=== PATIENT | female | born 1935 | race Caucasian/White ===

== ENCOUNTER → 2017-08-20 | Outpatient (CLI) | payer OTHER ==
[~2017-08-20] VITALS: Ht 165.1 cm; Wt 70.3 kg
[~2017-08-20] MED LIST: ADULT LOW DOSE81 MG; AMBIEN 5 MG TABL5 M1 PO; AMLODIPINE BESY10 MG; ANTIVERT25 MG PO; APAP500 PO; ASPIR 8181 M1 PO; ASPIRIN325 PO; CALCIUM 500 +1 EAC5 PO; CELEBREX 200 M200 MG PO; CENTRUM SILVER1 EAC1; CENTRUM SILVER1 EAC4 PO; FENOFIBRATE160 MG PO; HCTZ PO; HYDROCHLOROTHIA25 M1 PO; LIPITOR 20 MG T20 M1 PO; LISINOPRIL20 MG PO; LOPRESSOR100 M1 PO; LOPRESSOR100 MG; LOPRESSOR100 MG PO; MYLAN PO; NORVASC 5 MG TAB5 MG PO; OMEPRAZOLE 20 M20 M1 PO; OMEPRAZOLE10 MG; RESTORIL15 MG; SIMVASTATIN40 MG; SIMVASTATIN40 MG PO; TRAMADOL 50 MG50 MG PO; TYLENOL325 MG PO; VICODIN 5-5001 EACH PO; [UNRECOGNIZED DRUG - MIXTURE]; acid reducer
--- NOTE | ~2017-08-20 | S ---
[facility] [place] [address] [place] [address] SURGICAL PATH RPT PROCEDURE Name: YOLETTE BISHOP Room #: REG [facility].#: [id number] Admission: 08/20/17 Date of : 39 Discharge: Report #: [id number] Path Case #: [id number] PATHOLOGY REPORT COLLECTION DATE: 08/20/2017 RECEIVED DATE: 08/21/2017 SUBMITTING PHYS: Dr. Chris Gaytan OTHER PHYS: Dr. Vielka Kaiser SPECIMEN(S) RECEIVED: A.Polyp ascending colon B.Polyp 70 cm * * * * * * * * * * * * FINAL DIAGNOSIS: A. Colon, ascending, biopsy: - Colonic mucosa with hyperplastic change. B. Colon,70 cm, biopsy: - Colonic mucosa with hyperplastic change. PATHOLOGIST: Lyle Rosario M.D. REPORT ELECTRONICALLY SIGNED BY: Lyle Rosario M.D. DATE/TIME: 08/24/2017 10:09 * * * * * * * * * * * * GROSS PATHOLOGY: A. The specimen is received in formalin, labeled "Clayton, Yolette, ascending colon polyp" and consists of a 0.3 cm freeman mucosal biopsy. Totally submitted as A1. B. The specimen is received in formalin, labeled "Clayton, Yolette, polyp 70 cm" and consists of a 0.5 cm freeman polypoid mucosal biopsy. Totally submitted B1. (JAY; 08/21/2017) CLINICAL HISTORY: History of polyps INITIAL CPT CODE(S): A; 66765 B; 04555 Professional services performed by [facility] at [facility] [address] , [place] [address] Technical services performed by [facility] at [address] [place] [address] [place] [address] SURGICAL PATH RPT PROCEDURE Name: YOLETTE BISHOP Room #: REG [facility].#: [id number] Admission: 08/20/17 Date of : 39 Discharge: Report #: [id number] Path Case #: [id number] [place] [address]. [facility] [address] [address] PHONE: [phone] DIRECTOR: Norman Silva M.D. * * * END OF REPORT * * *
--- NOTE | ~2017-08-20 | P ---
[facility] [place] [address] [place] [address] PROCEDURE REPORT Name: MINDY BISHOP Room #: REG [facility]#: [id number] Admission: 08/20/17 Attend Phys: Chris Gaytan MD Discharge: Date of : 39 Report #: [id number] THIS REPORT FOR: //name// CC: Briana Gaytan DATE OF SERVICE: 08/20/2017 BRIEF HISTORY: The patient is an 82-year-old woman for high risk screening colonoscopy. She has had previous colonoscopies at other institution and is told she had colon polyps and was told to return in 3 years. PREOPERATIVE DIAGNOSIS: High risk screening due to history of colon polyps. POSTOPERATIVE DIAGNOSES: 1. Colon polyps. 2. Moderate diverticulosis coli. MEDICATIONS: Deep sedation with propofol per anesthesia. SPECIMEN: 1. Diminutive polyp, ascending colon. 2. Sessile polyp from 70 cm. ESTIMATED BLOOD LOSS: 3 mL. PROCEDURE: Colonoscopy to cecum and terminal ileum with biopsy and snare polypectomy. FINDINGS: Prior to propofol sedation, procedure of colonoscopy discussed with the patient as well as potential risks and its complications. She indicates she understands and desires to proceed. DESCRIPTION OF PROCEDURE: With the patient in left lateral decubitus position, digital examination was completed which revealed no abnormalities. Subsequently, the [employer] video colonoscope was introduced into the rectum, advanced under direct vision to the cecum. Done with minimal difficulty. The cecum was identified by the ileocecal valve and the appendiceal orifice. I was able to visualize the distal segment of terminal ileum, which was noted to be unremarkable. At that point, the scope was slowly withdrawn and careful circumferential views were obtained. Upon slow withdrawal of the scope, the prep was good. The mucosa was within normal limits, normal vascular pattern, normal light reflex. As we withdrew the scope, she was found to have a diminutive polyp in the proximal ascending colon which was removed by biopsy. Scope was further withdrawn and a few scattered diverticula were seen in the [facility] [address] [place] [address] PROCEDURE REPORT Name: MINDY BISHOP Room #: REG [facility] ..#: [id number] Admission: 08/20/17 Attend Phys: Chris Gaytan MD Discharge: Date of : 39 Report #: [id number] proximal colon. No additional abnormalities were noted until the descending colon was reached and at 70 cm, a 5 mm sessile polyp was seen and removed by cold snare polypectomy. Scope was further withdrawn and no additional abnormalities were seen. Scope was withdrawn. The patient tolerated the procedure well. Scope was withdrawn in the rectum and multiple attempts of retroflexion failed. Scope was withdrawn. A repeat digital rectal exam was completed very carefully. I could not feel any palpable lesions in the anal canal or the anal verge area. The patient tolerated the procedure well. CONDITION OF THE PATIENT UPON DISCHARGE: Following procedure, the patient drowsy, aroused, conversant and will be discharged home when fully ambulatory. INSTRUCTIONS TO THE PATIENT AND FAMILY AT THE TIME OF DISCHARGE: The patient has a history of polyps. We will follow up on the path from today. If one or both are adenomas, typical recommendation would be 5 years. I would consider colonoscopy in 5 years on her overall health status at that point in time. if her health is good and she has lifespan is 7-10 years, a colonoscopy would be reasonable. However, if health is poor, life expectancy is limited, I would forgo colonoscopy at that time. She will return to her primary care physician and return to see me as needed. Last colonoscopy was about 4 years ago. Withdrawal time from the cecum was 15 minutes. <ELECTRONICALLY SIGNED> By: Chris Gaytan MD 08/24/17 1948 1204 1231 Chris Gaytan MD /nt
== END | disposition home or self-care (01) ==
LOC: EDSTATUS 08:17 → GI 08:20
DX: Z09 Encounter for follow-up examination after completed treatment for conditions other than malignant neoplasm (principal); K63.5 Polyp of colon; K57.30 Diverticulosis of large intestine without perforation or abscess without bleeding; I10 Essential (primary) hypertension; E78.5 Hyperlipidemia, unspecified; M19.90 Unspecified osteoarthritis, unspecified site; M06.9 Rheumatoid arthritis, unspecified; Z90.49 Acquired absence of other specified parts of digestive tract; Z86.73 Personal history of transient ischemic attack (TIA), and cerebral infarction without residual deficits; Z87.891 Personal history of nicotine dependence; Z98.890 Other specified postprocedural states; Z88.6 Allergy status to analgesic agent; Z79.899 Other long term (current) drug therapy; Z79.82 Long term (current) use of aspirin
CPT/HCPCS: 62110; 62900

== ENCOUNTER 2018-09-06 15:14 | Emergency (ER) | payer OTHER ==
[~2018-09-06] VITALS: Ht 170.2 cm; Wt 72.6 kg
--- NOTE | ~2018-09-06 | EKG ---
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: HERMILO : 1935 Requested By: Howie Hamilton Order Number: [id number] MD: Edi Gonzalez Measurements Intervals [place] Rate: 71 P: 28 VA: 158 QRS: -65 QRSD: 84 T: 27 QT: 387 QTc: 421 Interpretive Statements Sinus rhythm Atrial premature complex Inferior infarct, old Anterior infarct, old Compared to ECG 11/10/2016 11:39:58 Atrial premature complex(es) now present Electronically Signed On 09-06-2018 16:43:16 CDT by Edi Gonzalez [email or web address] <ELECTRONICALLY SIGNED> By: Edi Gonzalez MD, [facility] 09/06/18 1643 [id number] 153 Edi Gonzalez MD, FAC /EPI
[~2018-09-06 15:14] MED LIST changes: +OMEPRAZOLE40 MG PO
[2018-09-06 16:12] LABS: HEMATOCRIT 35.9 % (37.0-47.0); HEMOGLOBIN 12.1 gm/dL (12.0-15.0); MCH 31.1 pg (26.0-34.0); MCHC 33.8 g/dL (28.0-37.0); MCV 92.1 fL (80.0-100.0); RBC 3.89 mil/uL (4.20-5.00); RDW 14.5 % (10.5-14.5); WBC 10.8 thou/uL (4.0-11.0)
[2018-09-06 16:20] LABS: ANION GAP 9 mmol/L (7-16); BUN 30 mg/dL (7-18); CALCIUM 9.9 mg/dL (8.5-10.1); CHLORIDE 103 mmol/L (98-107); CO2 26 mmol/L (21-32); CREATININE 1.6 mg/dL (0.6-1.0); GLUCOSE 95 mg/dL (74-106); POTASSIUM 3.4 mmol/L (3.5-5.1); SODIUM 138 mmol/L (136-145)
[2018-09-06 16:28] LABS: ALBUMIN 3.6 g/dL (3.4-5.0); SGOT 21 U/L (15-37); SGPT 17 U/L (30-65); TOTAL BILIRUBIN 0.7 mg/dL (<0.1-1.0); TOTAL PROTEIN 7.3 g/dL (6.4-8.2); TROPONIN-I <0.06 ng/mL (<0.06)
[2018-09-06] MEDS ORDERED: MORPHINE SULFAT15 M3 PO (18:58)
== END 2018-09-06 20:02 | disposition home or self-care (01) ==
LOC: ER 15:14
PROVIDERS: Emergency Medicine
DX: M54.9 Dorsalgia, unspecified (principal); G89.29 Other chronic pain; R07.9 Chest pain, unspecified; Z87.891 Personal history of nicotine dependence; Z88.5 Allergy status to narcotic agent; Z98.890 Other specified postprocedural states; Z90.49 Acquired absence of other specified parts of digestive tract; M06.9 Rheumatoid arthritis, unspecified; I10 Essential (primary) hypertension; E78.5 Hyperlipidemia, unspecified; Z86.73 Personal history of transient ischemic attack (TIA), and cerebral infarction without residual deficits; K21.9 Gastro-esophageal reflux disease without esophagitis

== ENCOUNTER 2019-04-29 18:24 | Inpatient (IN) | payer OTHER ==
[~2019-04-29] VITALS: Ht 165.1 cm; Wt 74.3 kg
[~2019-04-29 18:24] MED LIST changes: +MORPHINE SULFAT15 M3 PO
[2019-04-29 18:25] VITALS: BP 143/50
[2019-04-29 19:06] LABS: ABSOLUTE NEUTROPHILS 10.8 thou/uL (1.4-8.2); BASOPHILS 0.3 % (0.0-2.0); EOSINOPHILS 0.9 % (0.0-3.0); HEMATOCRIT 38.7 % (37.0-47.0); HEMOGLOBIN 12.8 gm/dL (12.0-15.0); LYMPHOCYTES 7.8 % (24.0-44.0); MCH 31.1 pg (26.0-34.0); MCHC 33.1 g/dL (28.0-37.0); MCV 93.9 fL (80.0-100.0); MONOCYTES 7.4 % (1.0-8.0); PLATELET COUNT 280 thou/uL (150-400); POLYS 83.6 % (36.0-66.0); RBC 4.12 mil/uL (4.20-5.00); RDW 14.5 % (10.5-14.5); WBC 12.9 thou/uL (4.0-11.0)
[2019-04-29 19:08] LABS: ANION GAP 11 mmol/L (7-16); BUN 32 mg/dL (7-18); CALCIUM 9.4 mg/dL (8.5-10.1); CHLORIDE 101 mmol/L (98-107); CO2 26 mmol/L (21-32); CREATININE 1.4 mg/dL (0.6-1.0); GLUCOSE 123 mg/dL (74-106); POTASSIUM 3.9 mmol/L (3.5-5.1); SODIUM 138 mmol/L (136-145)
--- NOTE | 2019-04-29 19:12 | EKG ---
[place] [address] [address] 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: WG : 1935 Requested By: Abdulkadir Doss Order Number: [id number] MD: García Michel Measurements Intervals [place] Rate: 75 P: 25 WY: 182 QRS: -61 QRSD: 82 T: 44 QT: 352 QTc: 394 Interpretive Statements Sinus rhythm Anteroseptal infarct age indeterminate Left axis deviation Inferior Q waves in 2 aVF consider inferior infarct age indeterminate Compared to ECG 09/06/2018 15:39:38 Atrial premature complex(es) no longer present Electronically Signed On 04-29-2019 19:12:19 CDT by García Michel [email or web address] ��������������������������������������������� <ELECTRONICALLY SIGNED> ���������������������������������������� By: García Michel MD ��������������������������������������������� 04/29/191911 04 04 García Michel MD /EPI
[2019-04-29 19:17] LABS: TROPONIN-I <0.06 ng/mL (<0.06)
--- NOTE | 2019-04-29 19:19 | NUR ---
PATIENT'S SISTER, WILEY, RETURNED CALL ( REQUESTED BY PATIENT). SISTER STATES SHE IS NOT A CUSTOMER DEVELOPMENT REPRESENTATIVE FOR THE PATIENT AND WISHES TO NOT BE CONTACTED FURTHER WITH ANY UPDATES OR INFORMATION. INSTRUCTED THAT PATIENT SHOULD REACH OUT TO ONE OF HER SONS. THIS RN INFORMED SISTER THAT SHE IS NOT LISTED A CONTACT AND PATIENT VERBALLY REQUESTED SHE BE CONTACTED AND PROVIDED PHONE NUMBER. CHARGE NURSE NOTIFIED OF SISTER'S REQUEST TO NOT BE CONTACTED AGAIN
--- NOTE | 2019-04-29 19:43 | NUR ---
PATIENT'S SON, JACINDA BISHOP CONTACTED AT PATIENT REQUEST. NUMBER GIVEN BY PATIENT IS [phone]. MESSAGE LEFT FOR RETURN CALL
[2019-04-29 19:46] LABS: URINE BILIRUBIN NEGATIVE (Negative); URINE BLOOD NEGATIVE (Negative); URINE CLARITY CLEAR; URINE COLOR YELLOW; URINE GLUCOSE-RANDOM* NEGATIVE (Negative); URINE KETONES NEGATIVE (Negative); URINE LEUKOCYTES-REFLEX NEGATIVE (Negative); URINE NITRITE-REFLEX NEGATIVE (Negative); URINE PROTEIN (DIPSTICK) NEGATIVE (Negative); URINE SPECIFIC GRAVITY 1.015 (1.005-1.035); URINE UROBILINOGEN 0.2 E.U./dl (0.2-1.0)
--- NOTE | 2019-04-29 21:37 | NUR ---
PATIENT'S SON, JACINDA, CALLED AGAIN AT REQUEST OF PATIENT. ANOTHER VOICEMAIL LEFT FOR RETURN CALL.
[2019-04-29 21:53] VITALS: BP 148/40
[2019-04-29 21:55] VITALS: BP 148/40
[2019-04-29 22:46] VITALS: BP 135/69
[2019-04-29 22:49] VITALS: BP 135/69
[2019-04-30] MEDS ORDERED: HYDROCHLOROTH12.5 M1 PO (00:54)
[2019-04-30 04:25] VITALS: BP 143/73
[2019-04-30 04:27] VITALS: BP 112/58
[2019-04-30 04:29] VITALS: BP 131/73
--- NOTE | 2019-04-30 04:57 | NUR ---
PT ARRIVED UNIT AT ABOUT 2230. PT A/OX4, VITAL SIGNS STABLE, ASSESSMENT CHARTED. NO COMPLAINTS OF DIZZINESS, WALKED PT TO BATHROOM AND BACK TO BED. TOLERATED ACTIVITY APPROPRIATELY. PT COMPLAINED OF SOME NECK ATHRITIC PAIN. ORDERS RECIEVED AND IMPLEMENTED. PAIN ADEQAUTELY MANAGED WITH PAIN MEDICATION. ADMISSION COMPLETED. ORTHOSTATIC BP COMPLETED THIS AM. ORTHOSTATIC BP WITHIN NORMAL LIMITS. PT RESTED WELL THROUGH THE NIGHT. PROGRESSING TOWARD PLAN OF CARE. WILL CONTINUE TO MONITOR.
[2019-04-30 05:02] LABS: HEMATOCRIT 37.1 % (37.0-47.0); HEMOGLOBIN 12.3 gm/dL (12.0-15.0); MCH 31.5 pg (26.0-34.0); MCHC 33.2 g/dL (28.0-37.0); MCV 94.7 fL (80.0-100.0); RBC 3.91 mil/uL (4.20-5.00); RDW 14.1 % (10.5-14.5)
[2019-04-30 05:13] LABS: CALCIUM 9.1 mg/dL (8.5-10.1); CREATININE 1.3 mg/dL (0.6-1.0); MAGNESIUM 1.6 mg/dL (1.8-2.4); POTASSIUM 3.6 mmol/L (3.5-5.1)
[2019-04-30 08:20] VITALS: BP 123/63
[2019-04-30 15:03] VITALS: BP 123/63
--- NOTE | 2019-04-30 15:17 | NUR ---
ASSUMED CARE OF PATIENT AT 0700. ASSESSMENTS CHARTED. PATIENT SAT UP IN THE CHAIR FOR THE ENTIRETY OF THE MORNING. SHE AMBULATES WELL WITH HER CANE. PATIENT DENIES ANY FEELING OF LIGHTHEADEDNESS OR DIZZINESS. DISCHARGE PAPERWORK REVIEWED WITH THE PATIENT AND SIGNED. PRINTOUTS ABOUT "HOW TO PREVENT FALLS AT HOME" WERE GONE OVER AND GIVEN TO THE PATIENT. PATIENT'S TELE AND IV REMOVED. PATIENT STATES THAT SHE FEELS BETTER THAN SHE DID WHEN SHE ARRIVED. PATIENT WAS TAKEN VIA WHEELCHAIR TO THE MAIN ENTRANCE AND DRIVEN HOME BY HER SON.
== END 2019-04-30 15:15 | disposition home or self-care (01) | DRG 641 ==
LOC: ER 18:24 → EROBS 21:35 → 2N 22:08
PROVIDERS: Emergency Medicine; Nurse Practitioner Acute Care; ADMIT Hospitalist
DX: E86.0 Dehydration (principal); N17.9 Acute kidney failure, unspecified; N18.3 Chronic kidney disease, stage 3 (moderate); M06.9 Rheumatoid arthritis, unspecified; I12.9 Hypertensive chronic kidney disease with stage 1 through stage 4 chronic kidney disease, or unspecified chronic kidney disease; E78.5 Hyperlipidemia, unspecified; G89.29 Other chronic pain; W18.39XA Other fall on same level, initial encounter; K21.9 Gastro-esophageal reflux disease without esophagitis; Z79.82 Long term (current) use of aspirin; Z79.899 Other long term (current) drug therapy; Z86.73 Personal history of transient ischemic attack (TIA), and cerebral infarction without residual deficits; Z90.49 Acquired absence of other specified parts of digestive tract; Z88.6 Allergy status to analgesic agent; Z87.891 Personal history of nicotine dependence; Y93.89 Activity, other specified; Y92.89 Other specified places as the place of occurrence of the external cause; Y99.8 Other external cause status
CPT/HCPCS: 10081

== ENCOUNTER 2020-05-26 05:54 | Inpatient (IN) | payer OTHER ==
[~2020-05-26] VITALS: Ht 165.1 cm; Wt 70.3 kg
[~2020-05-26 05:54] MED LIST changes: +HYDROCHLOROTH12.5 M1 PO; -LOPRESSOR100 M1 PO; +TOPROL XL100 MG PO
[2020-05-26 05:55] VITALS: BP 189/73
[2020-05-26 07:52] LABS: ABSOLUTE NEUTROPHILS 4.7 thou/uL (1.4-8.2); BASOPHILS 0.8 % (0.0-2.0); EOSINOPHILS 2.3 % (0.0-3.0); HEMATOCRIT 38.2 % (37.0-47.0); HEMOGLOBIN 12.6 gm/dL (12.0-15.0); MCH 32.3 pg (26.0-34.0); MCV 97.8 fL (80.0-100.0); MONOCYTES 6.8 % (1.0-8.0); PLATELET COUNT 269 thou/uL (150-400); POLYS 53.1 % (36.0-66.0); RBC 3.91 mil/uL (4.20-5.00); WBC 8.9 thou/uL (4.0-11.0)
[2020-05-26 08:07] LABS: ANION GAP 11 mmol/L (7-16); BUN 18 mg/dL (7-18); CALCIUM 8.5 mg/dL (8.5-10.1); CHLORIDE 107 mmol/L (98-107); CO2 25 mmol/L (21-32); GLUCOSE 103 mg/dL (74-106); POTASSIUM 3.5 mmol/L (3.5-5.1); SODIUM 143 mmol/L (136-145)
[2020-05-26 08:13] LABS: ALBUMIN 3.2 g/dL (3.4-5.0); SGOT 32 U/L (15-37); SGPT 25 U/L (30-65); TOTAL BILIRUBIN 0.3 mg/dL (0.2-1.0)
[2020-05-26 08:15] LABS: DIRECT BILIRUBIN < 0.1 mg/dL (<0.1-0.2)
[2020-05-26 08:35] LABS: URINE BILIRUBIN NEGATIVE (Negative); URINE BLOOD TRACE (Negative); URINE CLARITY CLEAR; URINE COLOR YELLOW; URINE GLUCOSE-RANDOM* NEGATIVE (Negative); URINE KETONES NEGATIVE (Negative); URINE PROTEIN (DIPSTICK) 1+ (Negative); URINE SPECIFIC GRAVITY 1.015 (1.005-1.035); URINE UROBILINOGEN 0.2 E.U./dl (0.2-1.0)
[2020-05-26 08:36] LABS: URINE LEUKOCYTES-REFLEX 1+ (Negative); URINE NITRITE-REFLEX POSITIVE (Negative)
[2020-05-26 08:52] LABS: BACTERIA-REFLEX >30 Many /HPF (None Seen); CASTS None Seen /LPF (None Seen); CRYSTALS None Seen /LPF (None Seen); SQUAMOUS 4-10 Moderate /LPF (0-3); URINE RBC 0-2 Rare /HPF (0-2); URINE WBC-REFLEX 6-15 Few /HPF (0-5)
[2020-05-26 09:49] VITALS: BP 196/100
--- NOTE | 2020-05-26 09:49 | EKG ---
[facility] [place] [address] ELECTROCARDIOGRAM REPORT Name: MINDY BISHOP Room #: REG [facility]#: [id number] Admission: 05/26/20 Attend Phys: Discharge: Date of : 39 Report #: [id number] THIS REPORT FOR: cc: [facility] - Clinic physician unknown [facility] - Clinic physician unknown Edi Gonzalez MD [facility] ~ THIS REPORT FOR: //name// [facility] ED Test Date: 2020-05-26 Test Time: 06:10:16 Pat Name: MINDY BISHOP Department: Room: Gender: F Vice President Quality Assurance: [place] [id number] : 1935 Requested By: Rhonda Hernandez Order Number: [id number] MD: Edi Gonzalez Measurements Intervals [place] Rate: 67 P: 39 FL: 173 QRS: -56 QRSD: 88 T: 29 QT: 394 QTc: 416 Interpretive Statements Sinus rhythm LAD, consider LAFB or inferior infarct Poor R wave progression Baseline wander in lead(s) V6 Compared to ECG 04/29/2019 19:05:57 No significant change was found Electronically Signed On 05-26-2020 9:49:19 CDT by Edi Gonzalez [email or web address] <ELECTRONICALLY SIGNED> By: Edi Gonzalez MD, [facility] 05/26/20 0949 0610 0610 Edi Gonzalez MD, [facility] /EPI
--- NOTE | 2020-05-26 10:03 | NUR ---
1ST ATTEMPT AT REPORT
[2020-05-26 10:45] VITALS: BP 151/70
[2020-05-26 12:06] VITALS: BP 161/88
--- NOTE | 2020-05-26 12:40 | NUR ---
ORDERS RECEIVED FOR PT EVAL AND TREAT. Pt FROM HOME S/P FALL AND WAS FOUND TO HAVE L ACUTE COMMUNITED PROXIMAL HUMERUS FRACTURE. ORTHO CONSULT PENDING. WILL NEED UPDATED PT ORDERS FROM ORTHO REGARDING ANY RESTRICTIONS WITH L UE PRIOR TO INITIATING PT INTERVENTIONS.
--- NOTE | 2020-05-26 15:41 | NUR ---
ASSUMED CARE AT 0700, SHIFT ASSESMENT DONE, ADMISSION DONE. PT C/O PAIN, PRN PAIN MEDS GIVEN WITH SOME RELIEF. PT VERY ANXIOUS, URINATES OFTEN, INCONTINENT MOST OF THE TIME. REFUSES TO GET UP AND USE THE BEDSIDE COMMODE. HAS A UTI, ON IV ANTIBIOTICS. NO SURGERY NEEDED AT THIS TIME, HAS A IMMOLIZER ON. WILL CONTINUE TO ASSESS AND ASISST WITH ADLs NEEDED.
[2020-05-26 19:30] VITALS: BP 182/96
--- NOTE | 2020-05-27 03:29 | NUR ---
ASSUMED PT CARE AT APPROX 1900.PT C/O PAIN ON HER L SHOULDER IMMEDIATELY AFTER SHIFT CHANGE,MANAGED WITH MED.PT'S BP AT HS WAS ELEVATED,HOTEL OPERATION MANAGER ON DUTY NOTIFIED ORDER NOTED AND CARRIED OUT.PER AM NURSE,DR MARQUEZ GAVE ORDER FOR PT TO HAVE CHSIHOLM CATH PLACED,ORDER CARRIED OUT.PT REQUESTED FOR AND RECIEVED SLEEPING MED TO HELP HER SLEEP,PT SLEPT OFF AND ON.IMMOBILIZER TO HER L SHOULDER.PT APPEARS TO BE SLEEPING ON HER BED AT THIS TIME.FALL PRECAUTIONS IN PLACE,CALL LIGHT WITHIN REACH.
[2020-05-27 03:30] VITALS: BP 156/91
[2020-05-27 08:22] VITALS: BP 160/77
--- NOTE | 2020-05-27 09:05 | NUR ---
Assumed patient care at 0715. Vital signs stable, LSCTA, abdomen is soft and non-tender, BS x's 4; skin is clean, warm, dry and intact. Patient was given Ondansetron 4mg IV push for nausea at 0745; this medication was effective. She was given Hydrocodone 7/325mg po at 0745 as well for "level nine" left shoulder pain; she reports that this medication "only reduces my pain down to a level seven." Patient was given Miralax at 0752 for constipation; will monitor for effectiveness.
[2020-05-27 18:14] VITALS: BP 165/79
[2020-05-27 19:27] VITALS: BP 171/84
--- NOTE | 2020-05-28 00:23 | NUR ---
ASSUMED PT CARE AT 1900. PT IS VERY ANXIOUS, CALLS JUST ABOUT EVERY 20MINS FOR LITTLE THINGS. A&OX4 TONIGHT, KEPT SAYING SHE IS EXHAUSTED BUT COULD NOT SLEEP. DOSE OF AMBIEN GIVEN, FINALLY FELL ASLEEP AROUND 0000. PAIN BEING MANAGED WITH PO PAIN MEDS. NEW IV PLACED IN RIGHT AC, ZOFRAN GIVEN FOR NAUSEA. PT IS WORRIED ABOUT LACK OF BM, BUT STATES SHE IS PASSING GAS. PT HAS SIGNIFICANT ROSACEA. CHISHOLM PATENT WITH GOOD OUTPUT. WILL CONTINUE TO MONITOR.
[2020-05-28 04:03] VITALS: BP 161/69
[2020-05-28 06:15] VITALS: BP 165/72
[2020-05-28 07:52] VITALS: BP 158/69
[2020-05-28] MEDS ORDERED: CEFUROXIME250 MG PO (09:47)
[2020-05-28] MEDS ORDERED: GABAPENTIN 100100 MG PO (09:47)
[2020-05-28] MEDS ORDERED: CELEXA 20 MG TA20 MG PO (09:48)
[2020-05-28] MEDS ORDERED: TRAMADOL 50 MG50 MG PO (09:50)
--- NOTE | 2020-05-28 10:15 | NUR ---
chart review. cm consult for dcp. cm visited with pt at bedside with personal facial mask on. intro to cm, transition of care ie hh and skilled rehab. pt is a & o x 3 with some forgetfulness and confusion. noted pt would keep eyes closed during verbal conversation. " yes i told dr salcedo is where want to go for rehab. live alone. support from son and daughter. they will help me. 2 falls in last 6mo. have cane and walker. no life alert. no longer drive. manage own medciation. hh in past but cant remember who it was with."/erik. referral [facility]. pt will need covid test before [facility] will accept for skilled.
--- NOTE | 2020-05-28 12:32 | NUR ---
FAXED REFERRAL TO [facility] SPOKE WITH RASHEED IN ADM SHE RECEIVED REFERRAL AND WILL REVIEW. DP TO FOLLOW.
--- NOTE | 2020-05-28 15:52 | NUR ---
ASSUMED CARE OF THE PT AT 0700. PT IS UNABLE TO STAND AND PIVOT AND IS ON BEDREST, TRIED TO GET PT ON BSC AND PT BECAME VERY LETHARGIC AND WAS UNRESPONSIVE, AWAKENED AFTER STERNAL RUB, VS WERE NORMAL AND PT WAS ABLE TO SPEAK. PT IS ON 3.0 L O2 NC. PAIN CONTROLLED BY PAIN MEDS. PT HAD 2 LOOSE BM'S, INCONTINENT. CHISHOLM INTACT. R AC DRY AND INTACT. IMMOBILIZER WAS REMOVED AND SLING WAS APPLIED. FALL PRECAUTIONS IN PLACE, BED IN THE LOWEST POSITION AND CALL LIGHT IS IWTHIN REACH. PT CAN BE VERY CONFUSED AT TIMES, HAS NOT HAD SLEEP IN 2 DAYS. WILL CONTINUE TO MONITOR THE PT.
[2020-05-28 17:35] VITALS: BP 151/81
[2020-05-28 19:20] VITALS: BP 158/67
--- NOTE | 2020-05-29 00:14 | NUR ---
ASSUMED PT CARE AT 1900.PT ALERT/FORGETFUL AND CONFUSED.PT C/O PAIN ON HER L SHULDER, MANAGED WITH MED.PT HAS A BM AT HS.CHISHOLM CATH TO DD WITH LIGHT YELLOW URINE.THIS NURSE TRIED TO WEAN THIS PT OFF O2,PT WAS OBSERVED TO DESAT IN THE UPPER 80'S O2 SAT BACK AT 2L/NC.REPORT TO AISHWARYA MIRAMONTES AT 2300.
--- NOTE | 2020-05-29 02:58 | NUR ---
ASSUMED PT CARE AT 2300. PT IS A&OX3, WITH SOME FORGETFULNESS. ATTEMPTED TO WEAN OFF O2, BUT UNABLE TO SAT ABOVE 90%. CHISHOLM PATENT WITH GOOD OUTPUT. PT SELPT A MAJORITY OF THE SHIFT TONIGHT, WILL CONTINUE TO MONITOR.
[2020-05-29 03:35] VITALS: BP 150/72
[2020-05-29 07:30] VITALS: BP 147/80
--- NOTE | 2020-05-29 08:55 | NUR ---
cm faxed negative covid test to [facility] and left a VM WITH ADMISSIONS TO CONTACT CM BACK TO SEE IF THEY CAN ACCEPT PATIENT FOR SNF. CM AWAITING CALL AT THIS TIME.
[2020-05-29] MEDS ORDERED: LEVAQUIN 500 M500 M2 PO (10:37)
[2020-05-29 16:40] VITALS: BP 137/61
--- NOTE | 2020-05-29 16:52 | NUR ---
PT A&OX4. SLING TO L ARM NOTED, TOLERATING PO PAIN MED. CHISHOLM REMOVED ORDERED. PT WAITING FOR EXCEPTANCE FROM [facility]. PT HAS POOR APPETITE. PT STATES SHE IS TOO WEAK TO WORK WITH PT/OT. IV HAS BEEN REMOVED FROM R AC OK TO LEAVE OUT PER DR. MARQUEZ. BED ALARM ON, CALL LIGHT W/I REACH.
[2020-05-29 19:55] VITALS: BP 139/61
--- NOTE | 2020-05-30 04:01 | NUR ---
PT AOX4 WITH FORGETFULNESS AND ANXIETY. PT REPORTS PAIN IN LEFT SHOULDER, LEFT KNEE, AND LEFT HIP. PAIN WORSE WITH MOVEMENT, ACTIVITY,AND TACTILE STIMULATION PT RECEIVING PRN PO NORCO Q4HR. PT NOTED TO HAVE SOB WITH EXERTION, CONTINUES WITH 2L VIA NC. PT RESTING IN BED THROUGHOUT SHIFT. FREQUENT REPOSITIONING ENCOURAGED. PT NOTED TO BE WEAK, REQUIRING X1-2 ASSIST. LUE SLING REMAINS IN PLACE. PT TOLERATING PO INTAKE OF FLUIDS WITHOUT ISSUE. PT ENCOURAGED TO NOTIFY STAFF FOR ALL NEEDS. CALL LIGHT WITHIN REACH, BED ALARM ON, BED IN LOWEST POSITION. WILL CONTINUE TO MONITOR.
[2020-05-30 09:45] VITALS: BP 154/76
--- NOTE | 2020-05-30 14:07 | NUR ---
PT CARE ASSUMED AT 0700. A&Ox4. FORGETFUL. PT IS PENDING TO DISCHARGE TO [facility] TODAY. AWAITING INFORMATION ON WHAT TIME TRANSPORTATION IS TO HAPPEN. NO IV IN PLACE. SIGNED OFF FROM . PT PAIN MANAGED WELL WITH PAIN MEDICATION. EXTERNAL CHISHOLM IN PLACE. WILL CALL DAUGHTER ONCE I HAVE A TIME FOR TRANSPORT. FALL PROTOCOL IN PLACE. CALL LIGHT IN REACH. PT IS VERY TIME CONFUSING AND WILL FORGET THAT SHE HAS ALREADY HAD HER PAIN MEDICATION. WILL CONTINUE TO MONITOR.
--- NOTE | 2020-05-30 15:40 | NUR ---
PT WAS TO DC TODAY TO [facility] SPOKE WITH RASHEED IN ADM THEY ARE NOT ABLE TO ACCEPT PT DUE TO A NEW ROUND OF COVID IN FACILITY. THEY WILL NOT ACCEPT ANY NEW PTS AT THIS TIME. DP TO FOLLOW.
--- NOTE | 2020-05-30 16:01 | NUR ---
[facility] INDICATED THEY AREN'T TAKING ANY NEW PATIENTS THEY ARE TESTING STAFF AND RESIDENTS FOR COVID. CM NOTIFIED PT AND REVIEWED FACILITY LIST WITH HER. SHE ASKED THAT REFERRAL BE SENT TO [facility]. REFERRAL SENT. CM NOTIFIED LIAISON. CM TO FOLLOW INDICATED WITH DC PLANNING.
--- NOTE | 2020-05-30 16:52 | NUR ---
PT ACCEPTED AT [facility] THEY WILL NOT BE ABLE TO TAKE PT TODAY BUT WILL ARRANGED TRANSPORTATION FOR TOMORROW 05/31 AT 0900. FAXED DC ORDERS/SUMMARY TODAY TO FACILITY AND RECEIVED CONFIRMATION.
--- NOTE | 2020-05-30 16:58 | NUR ---
Message left for pt's dtr Lexii regarding dc to snf tomorrow at 9am.
[2020-05-30 17:47] VITALS: BP 151/81
[2020-05-30 19:29] VITALS: BP 147/78
--- NOTE | 2020-05-31 02:11 | NUR ---
ASSUMED PT CARE AT 1900. PT A&OX4 TONIGHT. EXTERNAL FEMALE CATH IN PLACE WITH LARGE OUTPUT. PAIN BEING MANAGED WITH PO PAIN MEDS. ON 2L STILL. PT CALLING FREQ WITH A VARIETY OF REQUESTS (ADJUSTING ICE PACK, FIXING HEAD OF BED..) DID NOT FALL ASLEEP UNTIL AROUND 0100. ANTICIPATING D/C IN THE AM, WILL CONTINUE TO MONITOR.
[2020-05-31 05:47] VITALS: BP 156/96
[2020-05-31 07:07] VITALS: BP 182/92
[2020-05-31 09:41] VITALS: BP 182/92
--- NOTE | 2020-05-31 10:14 | NUR ---
PT CARE ASSUMED AT 0700. A&Ox4, FORGETFUL. PT HAS TAKEN MORNING MEDICATION AND HAS DISCHARGED TO [facility] AT 0952. DAUGHTER CALLED AND LEFT MESSAGE. PAIN MANAGED WELL WITH PAIN MEDICATION. FALL PROTOCOL IN PLACE. EXTERNAL CHISHOLM IN PLACE. REPORT CALLED TO JUSTINA BRANDT.
== END 2020-05-31 10:27 | DRG 562 ==
LOC: ER 05:54 → 4S 10:45
PROVIDERS: Emergency Medicine; ADMIT Hospitalist; ATTEND Hospitalist
DX: S42.202A Unspecified fracture of upper end of left humerus, initial encounter for closed fracture (principal); R65.11 Systemic inflammatory response syndrome (SIRS) of non-infectious origin with acute organ dysfunction; J96.01 Acute respiratory failure with hypoxia; N39.0 Urinary tract infection, site not specified; M19.90 Unspecified osteoarthritis, unspecified site; E78.5 Hyperlipidemia, unspecified; I10 Essential (primary) hypertension; B96.1 Klebsiella pneumoniae [K. pneumoniae] as the cause of diseases classified elsewhere; F41.9 Anxiety disorder, unspecified; K21.9 Gastro-esophageal reflux disease without esophagitis; G47.00 Insomnia, unspecified; F32.9 Major depressive disorder, single episode, unspecified; W18.30XA Fall on same level, unspecified, initial encounter; M54.9 Dorsalgia, unspecified; G89.29 Other chronic pain; R29.6 Repeated falls; E55.9 Vitamin D deficiency, unspecified; Z96.641 Presence of right artificial hip joint; Z03.818 Encounter for observation for suspected exposure to other biological agents ruled out; Y93.89 Activity, other specified; Y92.89 Other specified places as the place of occurrence of the external cause; Y99.8 Other external cause status; Z86.73 Personal history of transient ischemic attack (TIA), and cerebral infarction without residual deficits; Z87.891 Personal history of nicotine dependence; Z23 Encounter for immunization
CPT/HCPCS: 10102

== ENCOUNTER 2021-01-02 16:57 | Inpatient (IN) | payer OTHER ==
[~2021-01-02] VITALS: Ht 165.1 cm; Wt 68.0 kg
[~2021-01-02 16:57] MED LIST changes: +CEFUROXIME250 MG PO; +CELEXA 20 MG TA20 MG PO; +GABAPENTIN 100100 MG PO; +LEVAQUIN 500 M500 M2 PO
[2021-01-02 16:58] VITALS: BP 174/91
[2021-01-02 17:22] LABS: ABSOLUTE NEUTROPHILS 7.3 thou/uL (1.4-8.2); EOSINOPHILS 2.1 % (0.0-3.0); HEMATOCRIT 35.8 % (37.0-47.0); HEMOGLOBIN 11.7 gm/dL (12.0-15.0); LYMPHOCYTES 18.2 % (24.0-44.0); MCH 30.3 pg (26.0-34.0); MCHC 32.6 g/dL (28.0-37.0); MCV 92.7 fL (80.0-100.0); MONOCYTES 7.3 % (1.0-8.0); PLATELET COUNT 353 thou/uL (150-400); POLYS 71.4 % (36.0-66.0); RBC 3.86 mil/uL (4.20-5.00); WBC 10.2 thou/uL (4.0-11.0)
[2021-01-02 17:33] LABS: ANION GAP 12 mmol/L (7-16); BUN 32 mg/dL (7-18); CALCIUM 9.1 mg/dL (8.5-10.1); CHLORIDE 99 mmol/L (98-107); CO2 27 mmol/L (21-32); CREATININE 1.8 mg/dL (0.6-1.0); GLUCOSE 102 mg/dL (74-106); POTASSIUM 3.8 mmol/L (3.5-5.1); SODIUM 138 mmol/L (136-145)
[2021-01-02 17:44] LABS: ALBUMIN 3.6 g/dL (3.4-5.0); DIRECT BILIRUBIN < 0.1 mg/dL (<0.1-0.2); SGOT 18 U/L (15-37); SGPT 20 U/L (14-59); TOTAL BILIRUBIN 0.3 mg/dL (0.2-1.0); TOTAL PROTEIN 7.3 g/dL (6.4-8.2); TROPONIN-I <0.06 ng/mL (<0.06)
[2021-01-02 22:14] VITALS: BP 164/79
[2021-01-02 22:24] VITALS: BP 157/75
[2021-01-02 22:52] VITALS: BP 179/70
[2021-01-02] MEDS ORDERED: LEXAPRO5 MG PO (23:57)
[2021-01-03 05:58] LABS: CALCIUM 9.1 mg/dL (8.5-10.1); CREATININE 1.5 mg/dL (0.6-1.0); POTASSIUM 4.3 mmol/L (3.5-5.1)
--- NOTE | 2021-01-03 07:23 | EKG ---
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: luana : 1935 Requested By: Rhonda Hernandez Order Number: [id number] MD: Edi Gonzalez Measurements Intervals [place] Rate: 83 P: 19 FL: 168 QRS: -57 QRSD: 84 T: 43 QT: 380 QTc: 447 Interpretive Statements Sinus rhythm Multiple ventricular premature complexes Inferior infarct, old Poor R wave progression Compared to ECG 05/26/2020 06:10:16 Ventricular premature complex(es) now present Electronically Signed On 01-03-2021 7:23:16 SUPERVISOR FORCE ADJUSTMENT by Edi Gonzalez [email or web address] <ELECTRONICALLY SIGNED> By: Edi Gonzalez MD, [facility] 01/03/21 0723 1658 1658 Edi Gonzalez MD, [facility] /EPI
[2021-01-03 08:22] VITALS: BP 191/94
[2021-01-03 09:51] LABS: FOLIC ACID 15.8 ng/mL (8.6-58.9)
--- NOTE | 2021-01-03 12:57 | 2DMMODE ---
[facility] [place] [address] 2 D/M-MODE ECHOCARDIOGRAM Name: MINDY BISHOP Room #: 464-P ADM IN M.R.#: [id number] Admission: 01/02/21 Attend Phys: Misael Zavala MD Discharge: Date of : 39 Report #: [id number] THIS REPORT FOR: cc: [facility] - Clinic physician unknown [facility] - Clinic physician unknown Edi Gonzalez MD [facility] ~ APPROVED REPORT Study performed: 01/03/2021 11:15:45 EXAM: Comprehensive 2D, Doppler, and color-flow Echocardiogram Patient Location: Bedside Status: routine BSA: 1.75 HR: 64 bpm BP: 191/94 mmHg Rhythm: NSR Other Information Study Quality: Good Indications Arrhythmia Hypertension/HDD 2D Dimensions RVDd: 15.03 mm IVSd: 19.28 (7-11mm) LVOT Diam: 21.69 (18-24mm) LVDd: 33.99 mm PWd: 9.53 (7-11mm) Ascending Ao: 32.49 (22-36mm) LVDs: 18.26 (25-40mm) Aortic Root: 29.45 mm IVC: 16.00 mm Volumes Left Atrial Volume (Systole) Single Plane 4CH: 69.84 mL Single Plane 2CH: 32.99 mL LA ESV Index: 31.00 mL/m2 Aortic Valve AoV Peak Colin.: 0.80 m/s AO Peak Gr.: 2.56 mmHg LVOT Max P.53 mmHg LVOT Max V: 0.80 m/s JULIO Vmax: 3.68 cm2 [facility] [address] [place] [address] 2 D/M-MODE ECHOCARDIOGRAM Name: EDNAMINDY Room #: 464-P [facility] IN .R.#: [id number] Admission: 01/02/21 Attend Phys: Misael Zavala, Discharge: Date of : 37 Report #: [id number] Mitral Valve E/A Ratio: 0.7 MV Decel. Time: 203.38 ms MV E Max Colin.: 0.54 m/s MV A Colin.: 0.83 m/s MV PHT: 58.98 ms IVRT: 143.02 ms Pulmonary Valve PV Peak Colin.: 0.65 m/s PV Peak Gr.: 1.67 mmHg Tricuspid Valve TR Peak Colin.: 2.57 m/s TR Peak Gr.: 26.33 mmHg PA Pressure: 31.00 mmHg Left Ventricle The left ventricle is normal size. There is normal LV segmental wall motion. There is normal left ventricular wall thickness. The left ventricular systolic function is normal. The left ventricular ejection fraction is within the normal range. LVEF is 60-65%. Mild diastolic dysfunction Right Ventricle The right ventricle is normal size. The right ventricular systolic function is normal. Atria The left atrium size is normal. The right atrium size is normal. Aortic Valve The aortic valve is mildly calcified. No aortic regurgitation is present. There is no aortic valvular stenosis. Mitral Valve The mitral valve is normal in structure. Mild mitral regurgitation. No evidence of mitral valve stenosis. Tricuspid Valve The tricuspid valve is normal in structure. There is mild tricuspid regurgitation. Estimated PAP 31 mmHg. There is mild pulmonary hypertension. Pulmonic Valve [facility] [place] [address] 2 D/M-MODE ECHOCARDIOGRAM Name: HUMERA BISHOPMiriam MENDES Room #: 464-P ADM IN M.R.#: [id number] Admission: 01/02/21 Attend Phys: Misael Zavala, Discharge: Date of : 37 Report #: [id number] The pulmonary valve is normal in structure. There is no pulmonic valvular regurgitation. Great Vessels The aortic root is normal in size. IVC is normal in size and collapses >50% with inspiration. Pericardium There is no pericardial effusion. <Conclusion> The left ventricular systolic function is normal. There is normal LV segmental wall motion. LVEF is 60-65%. Mild diastolic dysfunction The aortic valve is mildly calcified. No aortic regurgitation or stenosis The mitral valve is normal in structure. Mild mitral regurgitation. There is mild tricuspid regurgitation. Estimated pulmonary artery pressure of 31 mmHg. There is no pericardial effusion. <ELECTRONICALLY SIGNED> By: Edi Gonzalez MD, FACC 01/03/21 1257 [id number] 1257 Edi Gonzalez MD, FAC /INF
[2021-01-03 21:18] VITALS: BP 156/44
[2021-01-04 00:57] LABS: URINE BILIRUBIN NEGATIVE (Negative); URINE BLOOD TRACE (Negative); URINE CLARITY SL CLOUDY; URINE COLOR YELLOW; URINE GLUCOSE-RANDOM* NEGATIVE (Negative); URINE KETONES NEGATIVE (Negative); URINE NITRITE-REFLEX NEGATIVE (Negative); URINE PROTEIN (DIPSTICK) NEGATIVE (Negative); URINE SPECIFIC GRAVITY 1.015 (1.005-1.035); URINE UROBILINOGEN 0.2 E.U./dl (0.2-1.0)
[2021-01-04 01:06] LABS: AMP/METHAMP Negative (Negative); BARBITURATES Negative (Negative); BENZODIAZEPINES Negative (Negative); COCAINE Negative (Negative); METHADONE Negative (Negative); OPIATES Negative (Negative); PCP Negative (Negative); URINE LEUKOCYTES-REFLEX 3+ (Negative)
[2021-01-04 01:32] LABS: SQUAMOUS 0-3 Few /LPF (0-3); WBC CLUMPS Few (None Seen)
[2021-01-04 01:33] LABS: CASTS None Seen /LPF (None Seen); CRYSTALS None Seen /LPF (None Seen); MUCUS 0-3 Light strn/LPF (None Seen); URINE RBC 0-2 Rare /HPF (0-2); URINE WBC-REFLEX >25 Many /HPF (0-5)
[2021-01-04 07:38] VITALS: BP 150/85
[2021-01-04 13:38] VITALS: BP 167/81
[2021-01-04 15:42] VITALS: BP 138/57
[2021-01-04 15:50] LABS: HEMATOCRIT 36.4 % (37.0-47.0); HEMOGLOBIN 11.5 gm/dL (12.0-15.0); MCH 29.7 pg (26.0-34.0); MCHC 31.5 g/dL (28.0-37.0); MCV 94.2 fL (80.0-100.0); RBC 3.87 mil/uL (4.20-5.00); RDW 15.8 % (10.5-14.5)
[2021-01-04 15:59] LABS: CALCIUM 8.8 mg/dL (8.5-10.1); CREATININE 1.2 mg/dL (0.6-1.0); MAGNESIUM 1.6 mg/dL (1.8-2.4); POTASSIUM 4.1 mmol/L (3.5-5.1)
[2021-01-04 20:11] VITALS: BP 129/56
[2021-01-05 04:48] LABS: HEMATOCRIT 33.1 % (37.0-47.0); HEMOGLOBIN 10.5 gm/dL (12.0-15.0); MCH 30.4 pg (26.0-34.0); MCHC 31.8 g/dL (28.0-37.0); MCV 95.6 fL (80.0-100.0); RBC 3.47 mil/uL (4.20-5.00); WBC 10.1 thou/uL (4.0-11.0)
[2021-01-05 05:15] LABS: CALCIUM 8.8 mg/dL (8.5-10.1); CREATININE 1.2 mg/dL (0.6-1.0); MAGNESIUM 1.6 mg/dL (1.8-2.4); POTASSIUM 4.2 mmol/L (3.5-5.1)
[2021-01-05 08:38] VITALS: BP 162/91
[2021-01-05 10:35] VITALS: BP 151/87
[2021-01-05 16:57] VITALS: BP 126/69
[2021-01-05 20:48] VITALS: BP 150/69
[2021-01-06 03:36] VITALS: BP 137/74
[2021-01-06 08:31] VITALS: BP 176/72
[2021-01-06 08:33] VITALS: BP 176/72
[2021-01-06 10:25] VITALS: BP 136/72
[2021-01-06 19:20] VITALS: BP 134/75
[2021-01-07 08:50] VITALS: BP 134/77
[2021-01-07 12:03] VITALS: BP 167/81
[2021-01-07] MEDS ORDERED: NORVASC10 MG PO (12:04)
--- NOTE | 2021-01-09 03:46 | HC ---
[facility] [place] [address] CONSULTATION Name: MINDY BISHOP Room #: 464-P [facility] IN M.R.#: [id number] Admission: 01/02/21 Attend Phys: Misael Zavala MD Discharge: 01/07/21 Date of : 37 Report #: [id number] THIS REPORT FOR: cc: [facility] - Clinic physician unknown [facility] - Clinic physician unknown Gerald Molina MD ~ DATE OF SERVICE: 01/03/2021 HISTORY OF PRESENT ILLNESS: This is an 86-year-old female patient who was not very happy when I saw her. She said she has not slept for 2 days and she is getting too much testing done. She has dizziness. To me, she says the dizziness is going on for several years and may be all her life. She had a fall. She said she was by herself in the kitchen and she does not know why she fell down. She did feel some dizzy, but she does not know whether she had any tonic-clonic activity or just fell down, looks like she fell down. It does not look like she had any drop attacks. She is not dizzy this morning. This is typical were dizziness is intermittent. She was brought to Emergency Room and I reviewed those notes. She has an unremarkable CT angiogram of the head and neck. REVIEW OF SYSTEMS: A 14-point review of system was carried out. The patient does have a history of hypertension, hyperlipidemia, arthritis. She had a hip replacement, cholecystectomy, appendectomy, laminectomy. She was very reluctant to give a history because of the fact, she says she has not slept for 2 days. I asked her whether she is stressed out, she said no. She does not do it very often for last 2 days she has not slept, but does not look like she has any new eye, ENT, cardiac, respiratory, GI, , constitutional, dermatological, hematological, psychiatric, throat, allergic symptom associated with present symptomatology. PAST MEDICAL HISTORY: Positive for laminectomy. FAMILY HISTORY: Negative for seizure. SOCIAL HISTORY: She does not drink any alcohol. PHYSICAL EXAMINATION: Indicate she is alert. She is responsive. She can follow simple commands when she wants to. Her speech looks intact. She thinks her memory and fund of knowledges her baseline, but more examination was difficult. Cranial nerve examination 2-12 looks unremarkable. She moves all four extremities symmetrically. Her position sense is intact. She says she can feel touch. Her reflexes are somewhat diminished in the lower extremities. There is no cerebellar sign. I could not look at the patient's fundus. There is no meningeal sign. Cardiac and respiratory examination does not appear to be showing any abnormality. Blood pressure is 191/94, temperature is 97, pulse is [facility] [address] [place] [address] CONSULTATION Name: MINDY BISHOP Room #: 464-P DIS IN M.R.#: [id number] Admission: 01/02/21 Attend Phys: Misael Zavala MD Discharge: 01/07/21 Date of : 37 Report #: [id number]. Cardiology is seeing her for irregular heart rate. Pulses are palpable. She has no edema, cyanosis or jaundice. She is reasonably well-built individual. Her hearing looks somewhat impaired, but vision looks okay. She has no dysmorphic features of face. IMPRESSION: Pretty difficult to form in this patient because of the poor history. I do not think it was transient ischemic attack or seizures, but I will do an EEG to exclude that. I think we need to check it up for systemic causes and see how she does with physical therapy. It is very desirable to do an MRI in this patient, both brain and C-spine, but she adamantly stated that she will not going to the tube. In this circumstances, we will await for physical therapy evaluation. 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 Thank you very much for this referral. I will ask Dr. Edwards to follow up this patient with you from tomorrow. <ELECTRONICALLY SIGNED> By: Gerald Molina MD 01/09/21 0346 [id number] 1331 Gerald Molina MD /nt
== END 2021-01-07 16:20 | disposition home health service (06) | DRG 308 ==
LOC: ER 16:57 → EROBS 22:04 → 4W 22:04
PROVIDERS: Emergency Medicine; Nurse Practitioner Family; ADMIT Internal Medicine; ATTEND Internal Medicine
DX: I49.3 Ventricular premature depolarization (principal); N17.0 Acute kidney failure with tubular necrosis; N39.0 Urinary tract infection, site not specified; M19.90 Unspecified osteoarthritis, unspecified site; E78.5 Hyperlipidemia, unspecified; G89.29 Other chronic pain; K21.9 Gastro-esophageal reflux disease without esophagitis; M54.2 Cervicalgia; M25.511 Pain in right shoulder; I12.9 Hypertensive chronic kidney disease with stage 1 through stage 4 chronic kidney disease, or unspecified chronic kidney disease; N18.30 Chronic kidney disease, stage 3 unspecified; F32.9 Major depressive disorder, single episode, unspecified; Z96.641 Presence of right artificial hip joint; Z90.49 Acquired absence of other specified parts of digestive tract; Z79.899 Other long term (current) drug therapy; Z86.73 Personal history of transient ischemic attack (TIA), and cerebral infarction without residual deficits; Z87.891 Personal history of nicotine dependence
CPT/HCPCS: 10040; 10045

== ENCOUNTER 2021-02-14 06:34 | Inpatient (IN) | payer OTHER ==
[~2021-02-14] VITALS: Ht 165.1 cm; Wt 61.7 kg
[~2021-02-14 06:34] MED LIST changes: +LEXAPRO5 MG PO; +NORVASC10 MG PO
[2021-02-14 06:36] VITALS: BP 190/85
[2021-02-14 07:29] LABS: ABSOLUTE NEUTROPHILS 5.9 thou/uL (1.4-8.2); BASOPHILS 1.2 % (0.0-2.0); EOSINOPHILS 2.6 % (0.0-3.0); HEMATOCRIT 34.8 % (37.0-47.0); HEMOGLOBIN 11.3 gm/dL (12.0-15.0); LYMPHOCYTES 17.6 % (24.0-44.0); MCH 29.5 pg (26.0-34.0); MCHC 32.6 g/dL (28.0-37.0); MCV 90.5 fL (80.0-100.0); MONOCYTES 11.5 % (1.0-8.0); PLATELET COUNT 357 thou/uL (150-400); POLYS 67.1 % (36.0-66.0); RBC 3.84 mil/uL (4.20-5.00); RDW 15.5 % (10.5-14.5); WBC 8.9 thou/uL (4.0-11.0)
[2021-02-14 07:48] LABS: ANION GAP 11 mmol/L (7-16); BUN 28 mg/dL (7-18); CALCIUM 9.9 mg/dL (8.5-10.1); CHLORIDE 103 mmol/L (98-107); CO2 26 mmol/L (21-32); CREATININE 1.6 mg/dL (0.6-1.0); GLUCOSE 114 mg/dL (74-106); POTASSIUM 3.5 mmol/L (3.5-5.1); SODIUM 140 mmol/L (136-145)
[2021-02-14 07:53] LABS: ALBUMIN 3.4 g/dL (3.4-5.0); LIPASE 208 U/L (73-393); SGOT 24 U/L (15-37); SGPT 18 U/L (30-65); TOTAL BILIRUBIN 0.4 mg/dL (0.2-1.0); TOTAL PROTEIN 7.3 g/dL (6.4-8.2); TROPONIN-I <0.06 ng/mL (<0.06)
--- NOTE | 2021-02-14 08:59 | EKG ---
[facility] [place] [address] ELECTROCARDIOGRAM REPORT Name: MINDY BISHOP Room #: [facility]#: [id number] Admission: 02/14/21 Attend Phys: Discharge: Date of : 37 Report #: [id number] [facility] ED Test Date: 2021-02-14 Test Time: 06:50:15 Pat Name: MINDY BISHOP Department: Room: Gender: F Pure Culture Operator: ENEIDA : 1935 Requested By: Luiz Orellana Order Number: [id number] MD: Edi Gonzalez Measurements Intervals [place] Rate: 71 P: 18 IN: 169 QRS: -53 QRSD: 87 T: 12 QT: 391 QTc: 425 Interpretive Statements Sinus rhythm Ventricular premature complex Left ventricular hypertrophy Inferior infarct, old Anterior Q waves, possibly due to LVH Baseline wander in lead(s) V4 Compared to ECG 01/02/2021 16:58:22 No significant change was found Electronically Signed On 02-14-2021 8:59:29 CDT by Edi Gonzalez [email or web address] <ELECTRONICALLY SIGNED> By: Edi Gonzalez MD, [facility] 02/14/21 0859 0650 Edi Gonzalez MD, [facility] /EPI
[2021-02-14 11:29] LABS: URINE BILIRUBIN NEGATIVE (Negative); URINE BLOOD TRACE (Negative); URINE CLARITY SL CLOUDY; URINE COLOR YELLOW; URINE GLUCOSE-RANDOM* NEGATIVE (Negative); URINE KETONES NEGATIVE (Negative); URINE PROTEIN (DIPSTICK) 1+ (Negative); URINE UROBILINOGEN 0.2 E.U./dl (0.2-1.0)
[2021-02-14 11:35] LABS: URINE LEUKOCYTES-REFLEX 2+ (Negative); URINE NITRITE-REFLEX POSITIVE (Negative)
[2021-02-14 11:44] LABS: BACTERIA-REFLEX >30 Many /HPF (None Seen); CASTS None Seen /LPF (None Seen); SQUAMOUS 0-3 Few /LPF (0-3); URINE WBC-REFLEX >25 Many /HPF (0-5); WBC CLUMPS Moderate (None Seen)
[2021-02-14 11:45] LABS: CRYSTALS None Seen /LPF (None Seen); URINE RBC 0-2 Rare /HPF (0-2)
[2021-02-14 16:18] VITALS: BP 155/77
[2021-02-14 16:29] VITALS: BP 153/67
[2021-02-14 16:40] VITALS: BP 150/72
--- NOTE | 2021-02-14 18:50 | NUR ---
Received pt from the ER at 4:30 pt, Called several times for pt to be in [facility] to begin admission process to the floor, pt was transferred to [facility] system at 5:45 pm. Orders completed, admission history and education completed. No nausea noted. Informed night nurse of the incomplete admission process.
[2021-02-14 19:46] VITALS: BP 149/61
--- NOTE | 2021-02-15 02:40 | NUR ---
PT CARE ASSUMED WITH PT IN BED WATCHING TV.PT IS A/O X4.PT IS UP WITH X1 ASSIST AND USES A WALKER AT HOME AND LIVES HOME ALONE.PT WANTS HOME HEALTH ON DISCHARGE.PT USES A BEDPAN.PT C/O OF GENERALIZED MODERATE PAIN AND PAIN MANAGED WITH TYLENOL.ADMISSION COMPLETED .IV ACCESS ON RT FA WITH NS AT 100CC/HR.FALL PRECAUTIONS IN PLACE AND PT CALLS FOR HELP APPROPRIETELY.WILL CONTINUE TO MONITOR PER POC
[2021-02-15 04:00] VITALS: BP 167/65
[2021-02-15 05:30] LABS: HEMATOCRIT 32.6 % (37.0-47.0); HEMOGLOBIN 10.6 gm/dL (12.0-15.0); MCH 30.1 pg (26.0-34.0); MCHC 32.5 g/dL (28.0-37.0); MCV 92.5 fL (80.0-100.0); RBC 3.53 mil/uL (4.20-5.00); RDW 15.6 % (10.5-14.5); WBC 7.3 thou/uL (4.0-11.0)
[2021-02-15 06:13] LABS: ALBUMIN 2.9 g/dL (3.4-5.0); CALCIUM 8.6 mg/dL (8.5-10.1); CREATININE 1.2 mg/dL (0.6-1.0); POTASSIUM 4.4 mmol/L (3.5-5.1); TOTAL BILIRUBIN 0.5 mg/dL (0.2-1.0); TOTAL PROTEIN 6.2 g/dL (6.4-8.2)
[2021-02-15 08:30] VITALS: BP 175/78
[2021-02-15 12:21] VITALS: BP 123/61
--- NOTE | 2021-02-15 14:14 | NUR ---
PT ADMITTED RELATED TO DIVERTICILITIS, UTI. CM REVIEWED CHART AND SPOKE WITH CARE TEAM. CM MET WITH PT AT BEDSIDE THIS DAY. PT APPEARED TO BE A&O X4. CM ROLE INTRODUCED. PT INDICATED SHE LIVES IN A HOUSE WITH NO STEPS TO ENTER AND NO STEPS INSIDE. 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 PT HAD BEEN HERE AT [facility] AND DC HOME 02/04/21 WITH [facility]. PT INDICATED SHE DIDN'T THINK SHE HAD BEEN ON SERVICE WITH THEM BARRATTE OPERATOR. PT INDICATED NO PCP AT THIS TIME. PT HAD BEEN GIVEN INFO ON PCP'S HERE UPON LAST DC. PT PLANS TO RETURN [place] ONCE MEDICALLY STABLE. CM FOLLOWING REGARDING DC PLANNING.
[2021-02-15 16:19] VITALS: BP 123/61
[2021-02-15 20:06] VITALS: BP 144/59
--- NOTE | 2021-02-15 20:09 | NUR ---
Assumed pt care this am, vs stable. pain is managed with medications. Is able to use the bedside commode with a walker, lesser instances of incontinence. POC followed with no signs or verbalizations of distress. Stayed on the recliner for most of the afternoon. Endorsed to the night nurse. Prefers to have a pureed diet, d/t her dentures being left at home.
--- NOTE | 2021-02-16 04:30 | NUR ---
PT IS A/O X4 AND IS UP WITH ASSISTANCE/SBA TO THE BSC. ROOM AIR. VSS. NO EPISODES OF INCONTIENCE THIS SHIFT.C/O CHRONIC BACK PAIN AND LEFT HIP PAIN FROM PREVIOUS FALL. PRN PAIN MEDICATION GIVEN DIRECTED. FALL PRECAUTIONS IN PLACE, CALL LIGHT IS WITHIN REACH. PT IS PROGRESSING TOWARDS PLAN OF CARE DC GOALS. WILL CONTINUE TO MONITOR.
[2021-02-16 07:48] VITALS: BP 149/59
[2021-02-16] MEDS ORDERED: FLAGYL500 M1 PO (11:05)
[2021-02-16] MEDS ORDERED: LEVOFLOXACIN750 MG PO (11:05)
--- NOTE | 2021-02-16 12:38 | NUR ---
FAXED DISCHARGE ORDERS AND SUMMARY TO [facility]. [facility] P [phone]; FAX [phone]
[2021-02-16 15:58] VITALS: BP 117/69
--- NOTE | 2021-02-16 15:58 | NUR ---
Assumed pt care this am VS stable, pt is able to use the commode buut could be incontinent at times. Pureed dies is preferred d/t her dentures being left at home and the pts request. DC orders given, when asked the pt woul could pick her up, pt asked that her daughter be called. Was able to call the daughter, she mentioned she cannot be disturbed since she is in the meddile of doing her tax returns and maybe be able to pick her up after 2 hours. Call back made after 2 hours, message left in her answering maching to call us back. POC followed, house sup informed.
== END 2021-02-16 17:38 | disposition home health service (06) | DRG 391 ==
LOC: ER 06:34 → 4W 12:10 → EROBS 12:10 → 4W 16:29
PROVIDERS: Emergency Medicine; ADMIT Internal Medicine; ATTEND Internal Medicine
DX: K57.12 Diverticulitis of small intestine without perforation or abscess without bleeding (principal); N17.0 Acute kidney failure with tubular necrosis; N39.0 Urinary tract infection, site not specified; M19.90 Unspecified osteoarthritis, unspecified site; E78.5 Hyperlipidemia, unspecified; G89.29 Other chronic pain; K21.9 Gastro-esophageal reflux disease without esophagitis; Z96.641 Presence of right artificial hip joint; F32.9 Major depressive disorder, single episode, unspecified; I10 Essential (primary) hypertension; K59.00 Constipation, unspecified; Z79.899 Other long term (current) drug therapy; Z90.49 Acquired absence of other specified parts of digestive tract; Z86.73 Personal history of transient ischemic attack (TIA), and cerebral infarction without residual deficits; Z87.891 Personal history of nicotine dependence; Z86.010 Personal history of colon polyps
CPT/HCPCS: 10040

== ENCOUNTER 2021-02-17 23:38 | Emergency (ER) | payer OTHER ==
[~2021-02-17] VITALS: Ht 165.1 cm; Wt 67.6 kg
[~2021-02-17 23:38] MED LIST changes: +FLAGYL500 M1 PO; +LEVOFLOXACIN750 MG PO
[2021-02-18 00:07] LABS: HEMATOCRIT 33.2 % (37.0-47.0); HEMOGLOBIN 10.6 gm/dL (12.0-15.0); MCH 28.9 pg (26.0-34.0); MCHC 31.9 g/dL (28.0-37.0); MCV 90.4 fL (80.0-100.0); RBC 3.67 mil/uL (4.20-5.00); RDW 15.3 % (10.5-14.5); WBC 12.7 thou/uL (4.0-11.0)
[2021-02-18 00:08] LABS: PLATELET COUNT 390 thou/uL (150-400)
[2021-02-18 00:14] LABS: ANION GAP 15 mmol/L (7-16); BUN 22 mg/dL (7-18); CALCIUM 9.3 mg/dL (8.5-10.1); CHLORIDE 103 mmol/L (98-107); CO2 23 mmol/L (21-32); CREATININE 2.1 mg/dL (0.6-1.0); GLUCOSE 120 mg/dL (74-106); SODIUM 141 mmol/L (136-145)
[2021-02-18 00:24] LABS: ALBUMIN 3.5 g/dL (3.4-5.0); LIPASE 81 U/L (73-393); MAGNESIUM 1.3 mg/dL (1.8-2.4); PHOSPHORUS 2.5 mg/dL (2.5-4.9); SGOT 31 U/L (15-37); SGPT 17 U/L (30-65); TOTAL BILIRUBIN 0.5 mg/dL (0.2-1.0); TOTAL PROTEIN 7.5 g/dL (6.4-8.2); TROPONIN-I <0.06 ng/mL (<0.06)
[2021-02-18 00:56] LABS: ABSOLUTE NEUTROPHILS 9.9 thou/uL (1.4-8.2)
[2021-02-18 04:30] VITALS: BP 138/81
--- NOTE | 2021-02-18 07:26 | EKG ---
[place] [address] [facility] [place] [address] ELECTROCARDIOGRAM REPORT Name: MINDY BISHOP Room #: DEP [facility]#: [id number] Admission: 02/17/21 Attend Phys: Discharge: 02/18/21 Date of : 37 Report #: [id number] [facility] Test Date: 2021-02-18 Test Time: 00:30:19 Pat Name: MINDY BISHOP Department: Room: Gender: F Marketing Information Coordinator: GRADY : 1935 Requested By: Miya Clark Order Number: [id number] MD: Luigi Garcia Measurements Intervals [place] Rate: 82 P: 5 ID: 180 QRS: -54 QRSD: 84 T: 33 QT: 404 QTc: 472 Interpretive Statements Sinus rhythm Consider left atrial enlargement Left ventricular hypertrophy Inferior infarct, old Anterior infarct, old Compared to ECG 02/14/2021 06:50:15 Ventricular premature complex(es) no longer present Q waves no longer present Myocardial infarct finding still present Electronically Signed On 02-18-2021 7:26:20 CDT by Luigi Garcia [email or web address] <ELECTRONICALLY SIGNED> By: Luigi Garcia MD, FACC 02/18/21 0726 Luigi Garcia MD, FAC /EPI
== END 2021-02-18 04:33 | disposition home or self-care (01) ==
LOC: ER 23:38
DX: R51.9 Headache, unspecified (principal); N17.9 Acute kidney failure, unspecified; D64.9 Anemia, unspecified; E83.42 Hypomagnesemia; I10 Essential (primary) hypertension; E78.5 Hyperlipidemia, unspecified; Z90.49 Acquired absence of other specified parts of digestive tract; Z87.891 Personal history of nicotine dependence; Z79.899 Other long term (current) drug therapy

== ENCOUNTER 2021-02-18 19:09 | Inpatient (IN) | payer OTHER ==
[~2021-02-18] VITALS: Ht 165.1 cm; Wt 63.0 kg
[2021-02-18 19:15] VITALS: BP 183/77
[2021-02-18 20:25] LABS: ABSOLUTE NEUTROPHILS 9.5 thou/uL (1.4-8.2); BASOPHILS 0.5 % (0.0-2.0); EOSINOPHILS 0.1 % (0.0-3.0); HEMATOCRIT 35.4 % (37.0-47.0); HEMOGLOBIN 11.9 gm/dL (12.0-15.0); LYMPHOCYTES 9.7 % (24.0-44.0); MCH 30.2 pg (26.0-34.0); MCHC 33.5 g/dL (28.0-37.0); MCV 89.9 fL (80.0-100.0); MONOCYTES 12.1 % (1.0-8.0); PLATELET COUNT 390 thou/uL (150-400); POLYS 77.6 % (36.0-66.0); RBC 3.94 mil/uL (4.20-5.00); RDW 15.7 % (10.5-14.5); WBC 12.3 thou/uL (4.0-11.0)
[2021-02-18 20:34] LABS: CALCIUM 9.9 mg/dL (8.5-10.1); CREATININE 1.5 mg/dL (0.6-1.0); POTASSIUM 4.6 mmol/L (3.5-5.1)
[2021-02-18 20:44] LABS: ALBUMIN 3.7 g/dL (3.4-5.0); MAGNESIUM 1.8 mg/dL (1.8-2.4); TOTAL BILIRUBIN 0.6 mg/dL (0.2-1.0); TOTAL PROTEIN 7.9 g/dL (6.4-8.2); TROPONIN-I 0.06 ng/mL (<0.06)
[2021-02-18 21:12] LABS: URINE BILIRUBIN NEGATIVE (Negative); URINE BLOOD TRACE (Negative); URINE CLARITY CLEAR; URINE COLOR YELLOW; URINE GLUCOSE-RANDOM* NEGATIVE (Negative); URINE KETONES NEGATIVE (Negative); URINE LEUKOCYTES-REFLEX NEGATIVE (Negative); URINE NITRITE-REFLEX NEGATIVE (Negative); URINE PROTEIN (DIPSTICK) 2+ (Negative); URINE SPECIFIC GRAVITY 1.025 (1.005-1.035); URINE UROBILINOGEN 0.2 E.U./dl (0.2-1.0)
[2021-02-18 21:21] LABS: HYALINE CASTS 0-3 Few /LPF (None Seen); MUCUS None Seen strn/LPF (None Seen); SQUAMOUS None Seen /LPF (0-3)
[2021-02-18 21:22] LABS: BACTERIA-REFLEX None Seen /HPF (None Seen); CRYSTALS None Seen /LPF (None Seen); URINE RBC 0-2 Rare /HPF (0-2); URINE WBC-REFLEX 0-5 Rare /HPF (0-5)
[2021-02-18 22:34] VITALS: BP 189/73
[2021-02-18 22:52] VITALS: BP 173/68
[2021-02-18 23:47] VITALS: BP 158/86
[2021-02-19 04:42] LABS: HEMATOCRIT 32.8 % (37.0-47.0); HEMOGLOBIN 10.5 gm/dL (12.0-15.0); MCH 28.8 pg (26.0-34.0); MCHC 32.1 g/dL (28.0-37.0); MCV 89.7 fL (80.0-100.0); RBC 3.65 mil/uL (4.20-5.00); RDW 15.4 % (10.5-14.5); WBC 12.7 thou/uL (4.0-11.0)
[2021-02-19 04:56] LABS: CALCIUM 9.1 mg/dL (8.5-10.1); CREATININE 1.2 mg/dL (0.6-1.0)
[2021-02-19 05:03] LABS: POTASSIUM 3.1 mmol/L (3.5-5.1)
--- NOTE | 2021-02-19 07:27 | EKG ---
[address] [place] [address] ELECTROCARDIOGRAM REPORT Name: MINDY BISHOP Room #: 218-P ADM IN M.R.#: [id number] Admission: 02/18/21 Attend Phys: Misael Zavala MD Discharge: Date of : 37 Report #: [id number] [facility] ED Test Date: 2021-02-18 Test Time: 19:21:49 Pat Name: MINDY BISHOP Department: Room: 218 Gender: F Clinical Documentation Manager: ENEIDA : 1935 Requested By: Collin Evans Order Number: [id number] MD: Luigi Garcia Measurements Intervals [place] Rate: 78 P: 0 [place]: 50 QRS: -49 QRSD: 89 T: 23 QT: 418 QTc: 477 Interpretive Statements Sinus rhythm Atrial premature complex LVH with secondary repolarization abnormality Anterior Q waves, possibly due to LVH Artifact in lead(s) II,III,aVF,V1,V2,V3,V4,V5,V6 Compared to ECG 02/18/2021 00:30:19 Atrial premature complex(es) now present Electronically Signed On 02-19-2021 7:27:44 CDT by Luigi Garcia [email or web address] <ELECTRONICALLY SIGNED> By: Luigi Garcia MD, FACC 02/19/21726 20 20 Luigi Garica MD, FAC /EPI
--- NOTE | 2021-02-19 08:00 | NUR ---
RECEIVED REPORT FROM GARRETT MIRAMONTES.PATIENT ARRIVED TO ROOM 218 AROUND 2315.PATIENT A/O X 4.HARD OF HEARING.CONTINENT BUT WILL PEE IN HER BRIEFS.PUREWICK EXTERNAL CATH PLACED.SACRAL AREA IS RED.COMPLAIN OF RIGHT SHOULDER PAIN AND NECK TYLENOL GIVEN.POC CONTINUED.
[2021-02-19 09:20] VITALS: BP 147/88
--- NOTE | 2021-02-19 10:00 | NUR ---
DR LANDA NOTIFIED REGARDING LOW POTASSIUM AND MAGNESIUM LEVEL. AWARE. PT IS STABLE AT THIS TIME AND IS AMBULATING IN THE ROOM WITH WALKER AND GAIT BED X1 ASSIST. NO CONCERNS AT THIS TIME. CALL LIGHT IN REACH
--- NOTE | 2021-02-19 10:47 | NUR ---
Patient with recent dc home with [facility] 02/16/21. Patient readmitted with weakness. She resides at home alone. She uses a walker in home. She has no steps to enter home. She has been given [employer] and resources for private duty. She reports she wants to have Dr Sawyer as her new pcp. She is agreeable for casemgt to inquire if accepting. She is agreeable if accepting to fax clinical informationn to office. She reports her son cannot assist her at dc he is now on oxygen. She reports her dtr lives nearby and can assist her at home. 5N consult [address]. Patient hopeful to do rehab here at [facility].
[2021-02-19 12:19] VITALS: BP 90/46
[2021-02-19 16:00] VITALS: BP 105/57
--- NOTE | 2021-02-19 16:38 | NUR ---
FAXED REFERRAL TO [facility] RECEIVED CONFIRMATION AND LEFT MSG WITH ZULAY IN ADM. FAXED REFERRAL TO [facility] WILL F/U WITH FACILITY TOMORROW.
--- NOTE | 2021-02-19 18:12 | NUR ---
PT RESTING IN BED AT THIS TIME WATCHING TV. HAS MILD DISCOMFORT IN THE RIGHT SHOULDER, PT ALERT AND HAS NO QUESTIONS AT THIS TIME. PT IS STABLE AND VS WNL, CALL LIGHT IN REACH
[2021-02-19 19:06] VITALS: BP 108/46
[2021-02-20 05:09] VITALS: BP 140/72
--- NOTE | 2021-02-20 05:49 | NUR ---
ASSUMED CARE OF PATIENT AT 1900. ABLE TO CALL OUT WHEN INCONTINENT. DENIES PAIN. WANTS HELP FINDING A PCP AND ALSO WANTS TO GO TO REHAB. PROGRESSING SLOWLY TOWARDS POC GOALS.
[2021-02-20 07:10] VITALS: BP 136/61
[2021-02-20 08:53] LABS: HEMATOCRIT 34.8 % (37.0-47.0); HEMOGLOBIN 11.3 gm/dL (12.0-15.0); MCH 29.2 pg (26.0-34.0); MCHC 32.5 g/dL (28.0-37.0); MCV 89.9 fL (80.0-100.0); RBC 3.87 mil/uL (4.20-5.00); RDW 15.5 % (10.5-14.5); WBC 12.8 thou/uL (4.0-11.0)
[2021-02-20 09:01] LABS: CALCIUM 9.2 mg/dL (8.5-10.1); CREATININE 1.8 mg/dL (0.6-1.0); MAGNESIUM 1.7 mg/dL (1.8-2.4)
--- NOTE | 2021-02-20 11:23 | NUR ---
PATIENT ARRIVED TO UNIT FROM CCU AT APPROX 1030. ASSESSMENT CHARTED, VSS. PATIENT APPEARS TO BE A&OX3-4 WITH SOME NOTED FORGETFULNESS. UPX1 TO TOILET W BERNADETTE AND TOMMIE. STATES SHE "IS TIRED". PLAN IS FOR PATIENT TO DISCHARGE TO [facility] THIS DAY. DENIES PAIN AT TIME OF ASSESSMENT. NO OUTSTANDING EVENTS THIS SHIFT. WILL CONTINUE TO MONITOR
[2021-02-20] MEDS ORDERED: LEVOFLOXACIN750 MG PO (16:40)
[2021-02-20] MEDS ORDERED: FLAGYL500 M1 PO (16:40)
[2021-02-20 18:31] VITALS: BP 116/65
--- NOTE | 2021-02-21 09:12 | NUR ---
PT DISCHARGED TO [facility] ON 02/20 AFTER CASE MGMT LEFT. NURSE FAXED DC ORDERS TO FACILITY.
--- NOTE | 2021-02-21 09:19 | NUR ---
02/20 LEFT BPCI LETTER WITH CHART, PATIENT NOT ORIENTED TO WHAT I WAS TALKING ABOUT.
--- NOTE | 2021-02-22 10:48 | NUR ---
Note Given: Y Facility List Provided:Y Facility Dougie: None chosen at this time Janna Vivas NP discussed BPCI with this pt 02/19/2021
== END 2021-02-20 19:00 | DRG 682 ==
LOC: ER 19:09 → EROBS 22:06 → 2N 22:06 → 4W 02-20 10:21
PROVIDERS: Emergency Medicine; Nurse Practitioner Family; ADMIT Internal Medicine; ATTEND Internal Medicine
DX: N17.0 Acute kidney failure with tubular necrosis (principal); R65.11 Systemic inflammatory response syndrome (SIRS) of non-infectious origin with acute organ dysfunction; R54 Age-related physical debility; I10 Essential (primary) hypertension; E78.5 Hyperlipidemia, unspecified; G89.29 Other chronic pain; K21.9 Gastro-esophageal reflux disease without esophagitis; Z96.641 Presence of right artificial hip joint; F32.9 Major depressive disorder, single episode, unspecified; K59.00 Constipation, unspecified; Z60.2 Problems related to living alone; Z74.1 Need for assistance with personal care; E83.42 Hypomagnesemia; M19.90 Unspecified osteoarthritis, unspecified site; E87.6 Hypokalemia; R29.6 Repeated falls; Z20.822 Contact with and (suspected) exposure to COVID-19; W18.39XA Other fall on same level, initial encounter; Z90.49 Acquired absence of other specified parts of digestive tract; Z86.73 Personal history of transient ischemic attack (TIA), and cerebral infarction without residual deficits; Z87.891 Personal history of nicotine dependence; Y93.89 Activity, other specified; Y92.89 Other specified places as the place of occurrence of the external cause; Y99.8 Other external cause status; Z23 Encounter for immunization; Z79.899 Other long term (current) drug therapy; N17.9 Acute kidney failure, unspecified
CPT/HCPCS: 10194